=== PATIENT | male | born 1945 | race African-American/Black ===

== ENCOUNTER → 2019-02-09 | Outpatient (CLI) | payer MEDICARE, OTHER ==
--- NOTE | 2019-02-11 16:36 | PE ---
EXAMINATION TYPE: PET CT fusion skull to thigh DATE OF EXAM: 02/09/2019 COMPARISON: No prior CTs at this location. Prior PET/CT: No prior PET CTs. HISTORY: Solitary pulmonary nodule R 91.1 TECHNIQUE: Following the intravenous administration of 12.82 mCi of F-18 FDG, whole body images are performed from the skull base to the midthigh. Images are reviewed on the computer in the coronal, a xial, and sagittal planes. Reconstructed rotating images are created on independent workstation and reviewed on the computer. A localization and attenuation correction CT is performed in conjunction with the PET scan. DLP: 473.22 mGycm SCAN: Initial Blood glucose: 64 mg/dL Average Mediastinum SUV: 2.01 Average Liver SUV: 2.36 FINDINGS: NECK: There is a punctate hyperintensity within the superior mediastinum or left supraclavicular reg ion. PET image 61. This has an SUV value 2.06. This is intermediate. Early metastasis is not excluded at this level. THORAX: In the irregular density at the right upper lobe there is marked increased radiotracer within SUV value of 4 compatible with neoplasm. Additionally, the nodes adjacent aortic arch are markedly h yperintense with an SUV value of 8.7 compatible with metastatic disease. Image 72 A medial aortopulmo maría elena window lymph node is markedly intense with an SUV value of 8.79. Image 77. Right hilar adenopathy is present with an SUV value of 5.3. Image 80. Right infrahilar uptake is elevated at 5.35. Image 85 . A subcarinal lymph node at the same level has an SUV value of 8.07. Left infrahilar uptake is also present with an SUV value of 3.76. A posterior left lung punctate density at this level measures 3.36 SUV value. Image 85. ABDOMEN: No abnormal uptake PELVIS: No abnormal uptake OSSEOUS STRUCTURES: No abnormal uptake LOCALIZATION CT: Left temporal and occipital craniotomies are evident. Ascending thoracic aorta at th e main pulmonary artery is 3.5 cm . The main pulmonary artery at the bifurcation is 2.9 cm. Lymphade nopathy within the mediastinum and hilar regions corresponding to the marked uptake on the PET scan i s not enlarged by measurement criteria. The largest lymph node adjacent to the aortic arch is 0.9 cm. However, PET image findings are very suggestive for metastatic disease. The irregular mass at the right apex measures 1.9 x 2.1 cm. Series 3 image 73. A punctate 0.6 nodula r density is within the posterior lateral left upper lung. Series 3 image 73. SUV value however is lo w at 0.84. This may be below the threshold of detectability by PET scan. There is an area of pneumoni tis within the right midlung. There are multiple punctate bilateral upper lung field nodules. The nod ule posterior left lung near the periphery measures 1.2 x 0.3 cm and has spiculated margins as well a s elevated SUV value suspicious for neoplasm. There is a 4.1 cm cyst measuring 7 Hounsfield units in the posterior superior right kidney. COMPARISON: None IMPRESSION: 1. Multiple bilateral lung nodules. The larger ones on both left and right are hyperintense with radi otracer as well as multiple bilateral hilar and periaortic and subcarinal lymphadenopathy with increa sed uptake. Findings are suspicious for metastatic disease. 2. The primary is most likely the right upper lobe lung mass. Other etiologies are not excluded but n ot identified based on the PET imaging. 3. Early metastasis in the left supraclavicular region is not excluded.
== END | disposition home or self-care (01) ==
LOC: RADPETMAIN 17:20
PROVIDERS: ATTEND Internal Medicine Critical Care Medicine
DX: R91.8 Other nonspecific abnormal finding of lung field (principal); R59.1 Generalized enlarged lymph nodes
CPT/HCPCS: 78815; A9552

== ENCOUNTER 2022-05-04 12:44 | Emergency (ER) | payer OTHER, MEDICARE ==
[2022-05-04 13:23] LABS: Glucose,Whole Blood 89 mg/dL (70-110)
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
--- NOTE | 2022-05-04 13:42 | XR ---
EXAMINATION TYPE: XR chest 2V DATE OF EXAM: 05/04/2022 COMPARISON: NONE HISTORY: Shortness of breath TECHNIQUE: Frontal and lateral views of the chest are obtained. FINDINGS: Scattered senescent parenchymal changes noted. Hyperinflation compatible with COPD. Vague scattered groundglass infiltrates. Correlate for developing pneumonia. No evidence for atelecta sis. Heart size is stable. Mediastinal structures are stable and grossly unremarkable. No evidence for hilar prominence. Degenerative changes dorsal spine. IMPRESSION: 1. Vague scattered groundglass infiltrates. Correlate for developing pneumonia. No evidence for atele ctasis.
[2022-05-04 13:49] LABS: HCT 37.6 % (39.0-53.0); HGB 12.8 gm/dL (13.0-17.5); MCH 30.2 pg (25.0-35.0); MCHC 34.1 g/dL (31.0-37.0); MCV 88.6 fL (80.0-100.0); Mean Platelet Volume 10.7; Platelet Count 173 k/uL (150-450); RBC 4.25 m/uL (4.30-5.90); RDW 12.8 % (11.5-15.5); WBC 3.9 k/uL (3.8-10.6)
[2022-05-04 13:53] LABS: Albumin 4.1 g/dL (3.5-5.0); Calcium 9.7 mg/dL (8.4-10.2); Potassium 4.1 mmol/L (3.5-5.1); Total Bilirubin 0.3 mg/dL (0.2-1.3); Total Protein 7.7 g/dL (6.3-8.2)
[2022-05-04 14:23] LABS: Eosinophils # (M) 0.12 k/uL (0-0.7); Lymphocytes # (M) 1.44 k/uL (1.0-4.8); Monocytes # (M) 1.21 k/uL (0-1.0); Neutrophils # (M) 1.13 k/uL (1.3-7.7); Neutrophils % (M) 29 %; Nucleated Red Blood Cells 0 /100 WBC (0-0); RBC Morphology Normal; Total Cells Counted 100
[2022-05-04 15:18] VITALS: RESP 16; TEMP 98
--- NOTE | 2022-05-04 16:31 | CT ---
EXAMINATION TYPE: CT brain wo con DATE OF EXAM: 05/04/2022 COMPARISON: None HISTORY: Altered mental status Unenhanced CT of the brain was performed. The ventricles, basal cisterns and sulci overlying the cerebral convexities demonstrate mild enlargem ent. Encephalomalacia posterior fossa, left frontal lobe and left temporal lobe. There is no evidence for intracranial hemorrhage or sulcal effacement. There is decreased attenuation about the periventricular white matter and deep white matter of both c erebral hemispheres, compatible with chronic small vessel ischemia. Differential diagnosis does inclu de demyelination. No mass effects are seen.No midline shift. Posterior fossa craniotomy. If symptoms persist consider MRI. IMPRESSION: 1. Age related atrophic and chronic small vessel ischemic change without acute intracranial process s een at this time.
[2022-05-04 16:36] LABS: Amphetamine Screen,Urine Not Detected (NotDetected); Barbiturate Screen,Urine Not Detected (NotDetected); Benzodiazepines Screen,Urine Not Detected (NotDetected); Cocaine Screen,Urine Not Detected (NotDetected); Methadone Screen, Urine Not Detected (NotDetected); Opiate Screen,Urine Not Detected (NotDetected); Oxycodone Screen, Urine Not Detected (NotDetected); Phencyclidine Screen,Urine Not Detected (NotDetected); Tricyclic Antidepressant,Urine Not Detected (NotDetected); Urn Cannabinoid Scrn Not Detected (NotDetected)
[2022-05-04 17:07] VITALS: BP 128/67; PULSE 52
== END 2022-05-04 17:09 | disposition left against medical advice (07) ==
LOC: EC 12:44
DX: R00.1 Bradycardia, unspecified (principal); R41.82 Altered mental status, unspecified; I10 Essential (primary) hypertension; Z53.29 Procedure and treatment not carried out because of patient's decision for other reasons; V49.40XA Driver injured in collision with unspecified motor vehicles in traffic accident, initial encounter
CPT/HCPCS: 36415; 70450; 71046; 80053; 80306; 84484; 85025; 93005; 99285

== ENCOUNTER → 2022-09-07 | Outpatient (CLI) | payer OTHER, MEDICARE ==
[2022-09-08 02:11] LABS: HCT 38.8 % (39.6-50.0); HGB 12.3 g/dL (13.0-17.0); MCH 29.9 pg (27.0-32.0); MCHC 31.7 g/dL (32.0-37.0); MCV 94.2 fL (80.0-97.0); Mean Platelet Volume 12.1 fL (9.5-12.2); NRBC Per 100 WBC 0 /100 WBCS (0.0-0.0); Platelet Count 201 X 10*3/uL (140-440); RBC 4.12 X 10*6/uL (4.40-5.60); RDW 12.4 % (11.5-14.5); WBC 6.01 X 10*3/uL (4.50-10.00)
[2022-09-08 02:14] LABS: ALT 14 U/L (10-49); AST 20 U/L (14-35); African American GFR (CKD) 79.5 (60.0-200.0); Albumin 3.9 g/dL (3.8-4.9); Albumin/Globulin Ratio 1.16 (1.60-3.17); Alkaline Phosphatase 64 U/L (41-126); BUN/Creat Ratio 18.57 Ratio (12.00-20.00); Blood Urea Nitrogen 19.5 mg/dL (9.0-27.0); Carbon Dioxide 28.5 mmol/L (20.0-27.5); Chloride 106 mmol/L (96-109); Globulin 3.3 g/dL (1.6-3.3); Glucose 91 mg/dL (70-110); Non-African American GFR(CKD) 68.6 (60.0-200.0); Potassium 4.7 mmol/L (3.5-5.5); Sodium 144 mmol/L (135-145); Total Bilirubin <0.15 mg/dL (0.30-1.20); Total Protein 7.2 g/dL (6.2-8.2)
== END | disposition home or self-care (01) ==
LOC: LABWHC1 15:50
PROVIDERS: ATTEND Physician Assistant
DX: R55 Syncope and collapse (principal)
CPT/HCPCS: 36415; 80053; 82306; 82607; 84207; 84439; 84443; 84481; 85027

== ENCOUNTER → 2022-11-12 | Outpatient (CLI) | payer OTHER ==
[2022-11-12 22:26] LABS: ALT 16 U/L (4-49); AST 26 U/L (17-59); African American GFR (CKD) 74 (>60 ml/min/1.73 sqM); Alkaline Phosphatase 57 U/L (38-126); Blood Urea Nitrogen 18 mg/dL (9-20); C Reactive Protein 1.2 mg/dL (<1.0); Non-African American GFR(CKD) 64 (>60 ml/min/1.73 sqM); Total Bilirubin 0.4 mg/dL (0.2-1.3)
[2022-11-12 23:06] LABS: Albumin 4.2 g/dL (3.5-5.0); Albumin/Globulin Ratio 1.1; Anion Gap 9 mmol/L; Carbon Dioxide 30 mmol/L (22-30); Chloride 107 mmol/L (98-107); Sodium 146 mmol/L (137-145); Total Protein 8.2 g/dL (6.3-8.2)
== END | disposition home or self-care (01) ==
LOC: LABWHC1 16:06
PROVIDERS: ATTEND Internal Medicine Critical Care Medicine
DX: D86.9 Sarcoidosis, unspecified (principal)
CPT/HCPCS: 36415; 80053; 82164; 85652; 86140

== ENCOUNTER → 2022-11-22 | Outpatient (CLI) | payer OTHER ==
[2022-11-22 14:34] LABS: African American GFR (CKD) 76 (>60 ml/min/1.73 sqM); Blood Urea Nitrogen 12 mg/dL (9-20); Non-African American GFR(CKD) 66 (>60 ml/min/1.73 sqM)
--- NOTE | 2022-11-22 15:33 | CT ---
EXAMINATION TYPE: CT chest w con CT DLP: 334.1 mGycm, Automated exposure control for dose reduction was used. DATE OF EXAM: 11/22/2022 2:52 PM COMPARISON: Pet/CT 02/09/2019. CLINICAL INDICATION:Male, 77 years old with history of D86.9, Sarcoidosis TECHNIQUE: Multiple axial images were obtained through the chest. Sagittal and coronal reformats were created for review. Contrast used:100ml mL of Isovue 300 with IV Contrast (None if empty) Oral contrast used: (None if empty) FINDINGS: LUNGS/ PLEURA: Scattered pulmonary nodules the largest in the right upper lobe measuring up to 16 mm and in the left lower lobe measuring up to 12 mm.. Additional scattered pulmonary nodules are seen th roughout the lungs. AIRWAY: Patent and unremarkable. HEART: Size within normal limits. MEDIASTINUM: Stable AP window lymph node measuring up tor 10 mm in short axis. VASCULATURE: No aortic aneurysm. Aberrant course of the right subclavian artery No evidence of filli ng defect to suggest pulmonary embolus. MUSCULOSKELETAL: Mild disc degeneration changes are present throughout the thoracolumbar spine. SOFT TISSUES/LYMPH NODES: Mild gynecomastia changes bilaterally. LOWER NECK: No significant findings. UPPER ABDOMEN: Right renal cyst. Scattered ossifications within the spleen and liver. IMPRESSION: Scattered pulmonary nodules which may be mildly increased from 02/09/2019 exam can be seen in setting of sarcoidosis.
== END | disposition home or self-care (01) ==
LOC: RADCTMAIN 13:35
PROVIDERS: ATTEND Internal Medicine Critical Care Medicine
DX: D86.0 Sarcoidosis of lung (principal); R91.8 Other nonspecific abnormal finding of lung field
CPT/HCPCS: 82565; 84520; 71260; 36415; Q9967